=== PATIENT | male | born 1990 | race Caucasian/White ===

== ENCOUNTER 2017-04-12 04:13 | Emergency (ER) | payer OTHER ==
[~2017-04-12 04:13] MED LIST: AMOX500T PO; Z.0.NO CURRENT MEDS
[2017-04-12] MEDS ORDERED: SODIUM CHLOR 0.9% 1000 ML INJ 1,000 ML IV SCH (04:15)
[2017-04-12] MEDS ORDERED: FAMOTIDINE 20 MG/2 ML VIAL IV PUSH ONE (04:15)
[2017-04-12] MEDS ORDERED: ONDANSETRON HCL 4 MG/2 ML VIAL IVP ONE (04:15)
[2017-04-12] MEDS ORDERED: SODIUM CHLORIDE 0.9% FLUSH 10 ML FLUSH IV FLUSH PRN (04:15)
[2017-04-12] MEDS ORDERED: ALUMINUM/MAGNESIUM/SIMETH 30 ML CUP PO ONE (04:15)
[2017-04-12] MEDS ORDERED: LIDOCAINE VISCOUS 2% SOLN 15 ML UDC PO ONE (04:15)
[2017-04-12 04:18] VITALS: BP 138/87; PULSE 85; RESP 16; TEMP 98.1; O2SAT 97
[2017-04-12 04:24] VITALS: O2SAT 95
[2017-04-12 04:39] LABS: AUTOMATED NEUTROPHIL # 9.3 TH/MM3 (1.8-7.7); BASOPHIL # 0.1 TH/MM3 (0-0.2); BASOPHIL % 0.4 % (0.0-2.0); EOSINOPHIL # 0.2 TH/MM3 (0-0.4); EOSINOPHIL % 1.4 % (0.0-4.0); HEMATOCRIT 48.7 % (39.0-51.0); HEMOGLOBIN 17.2 GM/DL (13.0-17.0); LYMPH % 19.1 % (9.0-44.0); LYMPHOCYTE # 2.4 TH/MM3 (1.0-4.8); MEAN CELL VOLUME 86.3 FL (80.0-100.0); MEAN CORPUSCULAR HEMOGLOBIN 30.4 PG (27.0-34.0); MEAN CORPUSCULAR HGB CONC 35.3 % (32.0-36.0); MEAN PLATELET VOLUME 7.6 FL (7.0-11.0); MONO % 6.5 % (0.0-8.0); MONOCYTE # 0.8 TH/MM3 (0-0.9); NEUT % 72.6 % (16.0-70.0); PLATELET COUNT 240 TH/MM3 (150-450); RED BLOOD COUNT 5.64 MIL/MM3 (4.50-5.90); RED CELL DISTRIBUTION WIDTH 13.1 % (11.6-17.2); WHITE BLOOD COUNT 12.8 TH/MM3 (4.0-11.0)
--- NOTE | 2017-04-12 04:53 | RADRPT ---
EXAM DATE/TIME: 04/12/2017 04:29 [place] COMPARISON: No previous studies available for comparison. INDICATIONS : Left upper and mid line abdomen pain. ORAL CONTRAST: No oral contrast ingested. RADIATION DOSE: 8.47 CTDIvol (mGy) MEDICAL HISTORY : None SURGICAL HISTORY : None. ENCOUNTER: Initial ACUITY: 1 day PAIN SCALE: 5/10 LOCATION: Left upper quadrant TECHNIQUE: Volumetric scanning of the abdomen and pelvis was performed. Using automated exposure control and ad justment of the mA and/or kV according to patient size, radiation dose was kept as low as reasonably achievable to obtain optimal diagnostic quality images. DICOM format image data is available electro nically for review and comparison. The lack of IV contrast limits the diagnosis for certain organ pa thology. FINDINGS: LOWER LUNGS: The visualized lower lungs are clear. LIVER: Homogeneous density without lesion. There is no dilation of the biliary tree. No calcified gallston es. SPLEEN: Normal size without lesion. PANCREAS: Within normal limits. KIDNEYS: Normal in size and shape. There is no mass, stone, or hydronephrosis. ADRENAL GLANDS: Within normal limits. VASCULAR: There is no aortic aneurysm. BOWEL/MESENTERY: The stomach, small bowel, and colon demonstrate no acute abnormality. There is no free intraperitone al air or fluid. No inflammatory changes. ABDOMINAL WALL: Within normal limits. RETROPERITONEUM: There is no lymphadenopathy. BLADDER: No wall thickening or mass. REPRODUCTIVE: Within normal limits. INGUINAL: There is no lymphadenopathy or hernia. MUSCULOSKELETAL: Within normal limits for patient age. CONCLUSION: No acute disease. No calcified renal stones or hydronephrosis. Jus Edward MD on April 12, 2017 at 4:48 Board Certified Radiologist. This report was verified electronically.
[2017-04-12 04:59] LABS: ALKALINE PHOSPHATASE 66 U/L (45-117); TOTAL BILIRUBIN ADULT 0.5 MG/DL (0.2-1.0); TOTAL PROTEIN 8.8 GM/DL (6.4-8.2)
[2017-04-12 05:01] LABS: ALBUMIN 4.8 GM/DL (3.4-5.0); ALT (GPT) 36 U/L (12-78); AST (GOT) 23 U/L (15-37); BICARBONATE 28.2 MEQ/L (21.0-32.0); BLOOD UREA NITROGEN 16 MG/DL (7-18); CALCIUM 9.5 MG/DL (8.5-10.1); CHLORIDE 105 MEQ/L (98-107); CREATININE 0.99 MG/DL (0.60-1.30); GLOMERULAR FILTRATION RATE 90 ML/MIN (>89); GLUCOSE,RANDOM 84 MG/DL (74-106); LIPASE 74 U/L (73-393); SODIUM (NA) 140 MEQ/L (136-145)
[2017-04-12] MEDS ORDERED: SUCRALFATE 1 GM TAB PO ONE (06:15)
[2017-04-12] MEDS ORDERED: PROT40TA PO (07:22)
[2017-04-12] MEDS ORDERED: TRAM50 PO (07:22)
[2017-04-12] MEDS ORDERED: CARA1TAB6 PO (07:22)
--- NOTE | 2017-04-12 07:22 | PD ---
HPI . GI complaint Chief Complaint: GI Complaint Time Seen by Provider: 04:15 Travel History International Travel<30 days: No Contact w/Intl Traveler<30days: No Traveled to known affect area: No History of Present Illness HPI 26-year-old male complains of epigastric pain radiating to the back worse with certain foods bending over. Patient had this pain for the past several weeks, getting worse, constant tonight and much more severe. 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 Patient denies any vomiting but has some nausea, denies any melena or hematochezia. Patient denies any stool changes including stearrhea. No change with oral intake fatty foods greasy foods or acidic/sour tasting foods. Denies fever chills sweats denies any idiosyncratic food intake or significant travel history. Patient denies any change in exercise tolerance PFSH Past Medical History Narrative Medical No significant past medical history Medical History: Denies Significant Hx Past Surgical History Surgical History: No Previous Surgery Social History Alcohol Use: Yes (OCC.) Tobacco Use: No Substance Use: No Allergies-Medications (Allergen,Severity, Reaction): Coded Allergies: No Known Allergies (Verified Allergy, Mild, 04/12/17) Reported Meds & Prescriptions Reported Meds & Active Scripts Active No Active Prescriptions or Reported Medications Narrative Medication Allergies medications review Review of Systems General / Constitutional: No: Fever Eyes: No: Visual changes HENT: No: Headaches Cardiovascular: No: Chest Pain or Discomfort Respiratory: No: Shortness of Breath Gastrointestinal: Positive: Nausea, Vomiting, Abdominal Pain Genitourinary: No: Dysuria Musculoskeletal: No: Pain Skin: No Rash Neurologic: No: Weakness Psychiatric: No: Depression Endocrine: No: Polydipsia Hematologic/Lymphatic: No: Easy Bruising Physical Exam Narrative GENERAL: Awake and alert oriented 3 patient is uncomfortable appearing but otherwise no acute distress SKIN: Warm and dry. Color is normal no diaphoresis cyanosis or pallor HEAD: Atraumatic. Normocephalic. EYES: Pupils equal and round. No scleral icterus. No injection or drainage. ENT: No nasal bleeding or discharge. Mucous membranes pink and moist. NECK: Trachea midline. No JVD. CARDIOVASCULAR: Regular rate and rhythm. S1-S2 no murmurs rubs or gallops RESPIRATORY: No accessory muscle use. Clear to auscultation. Breath sounds equal bilaterally. GASTROINTESTINAL: Abdomen soft, tender epigastrium no rebound or guarding no organomegaly appreciated., nondistended. Hepatic and splenic margins not palpable. MUSCULOSKELETAL: Extremities without clubbing, cyanosis, or edema. No obvious deformities. NEUROLOGICAL: Awake and alert. No obvious cranial nerve deficits. Motor grossly within normal limits. Five out of 5 muscle strength in the arms and legs. Normal speech. PSYCHIATRIC: Appropriate mood and affect; insight and judgment normal. Data Data Last Documented VS Vital Signs Date Time Temp Pulse Resp B/P (MAP) Pulse Ox O2 Delivery O2 Flow Rate FiO2 04/12/17 04:24 95 Room Air 04/12/17 04:18 98.1 85 16 138/87 (104) Orders Orders Complete Blood Count With Diff (04/12/17 04:15) Comprehensive Metabolic Panel (04/12/17 04:15) Lipase (04/12/17 04:15) Urinalysis - C+S If Indicated (04/12/17 04:15) Ct Abd/Pel W/O Iv Contrast (04/12/17 04:15) Iv Access Insert/Monitor (04/12/17 04:15) Ecg Monitoring (04/12/17 04:15) Oximetry (04/12/17 04:15) Ondansetron Inj (Zofran Inj) (04/12/17 04:15) Sodium Chlor 0.9% 1000 Ml Inj (Ns 1000 M (04/12/17 04:15) Sodium Chloride 0.9% Flush (Ns Flush) (04/12/17 04:15) Famotidine Inj (Pepcid Inj) (04/12/17 04:15) Al-Mag Hy-Si 40-40-4 Mg/Ml Liq (Mag-Al P (04/12/17 04:15) Lidocaine 2% Viscous (Xylocaine 2% Visco (04/12/17 04:15) Westergren Sedimentation Rate (04/12/17 06:06) Troponin I (04/12/17 06:06) Sucralfate (Carafate) (04/12/17 06:15) Labs Laboratory Tests Test 04/12/17 04:20 04/12/17 06:30 White Blood Count 12.8 TH/MM3 Red Blood Count 5.64 MIL/MM3 Hemoglobin 17.2 GM/DL Hematocrit 48.7 % Mean Corpuscular Volume 86.3 FL Mean Corpuscular Hemoglobin 30.4 PG Mean Corpuscular Hemoglobin Concent 35.3 % Red Cell Distribution Width 13.1 % Platelet Count 240 TH/MM3 Mean Platelet Volume 7.6 FL Neutrophils (%) (Auto) 72.6 % Lymphocytes (%) (Auto) 19.1 % Monocytes (%) (Auto) 6.5 % Eosinophils (%) (Auto) 1.4 % Basophils (%) (Auto) 0.4 % Neutrophils # (Auto) 9.3 TH/MM3 Lymphocytes # (Auto) 2.4 TH/MM3 Monocytes # (Auto) 0.8 TH/MM3 Eosinophils # (Auto) 0.2 TH/MM3 Basophils # (Auto) 0.1 TH/MM3 CBC Comment DIFF FINAL Differential Comment Blood Urea Nitrogen 16 MG/DL Creatinine 0.99 MG/DL Random Glucose 84 MG/DL Total Protein 8.8 GM/DL Albumin 4.8 GM/DL Calcium Level 9.5 MG/DL Alkaline Phosphatase 66 U/L Aspartate Amino Transf (AST/SGOT) 23 U/L Alanine Aminotransferase (ALT/SGPT) 36 U/L Total Bilirubin 0.5 MG/DL Sodium Level 140 MEQ/L Potassium Level 4.1 MEQ/L Chloride Level 105 MEQ/L Carbon Dioxide Level 28.2 MEQ/L Anion Gap 7 MEQ/L Estimat Glomerular Filtration Rate 90 ML/MIN Lipase 74 U/L MDM Medical Decision Making Medical Screen Exam Complete: Yes Emergency Medical Condition: Yes Medical Record Reviewed: Yes Differential Diagnosis Abdominal pain, epigastric pain, gastritis, reflux esophagitis, duodenitis, pancreatitis, choledocholithiasis, biliary colic Narrative Course Patient's laboratory examinations reviewed, no significant abnormalities. Patient had mild improvement with Maalox lidocaine and antacids IV. Patient's tenderness improved markedly. CT abdomen and pelvis no intra-abdominal pathology noted as per radiology. Diagnosis Primary Impression: Epigastric pain Additional Impression: Gastritis Qualified Codes: K29.00 - Acute gastritis without bleeding Patient Instructions: Gastritis (ED), General Instructions Additional Instructions: Protonix 40 mg daily. Carafate 1 g 4 times daily. Recommend follow-up with gastroenterology for evaluation and possible upper endoscopy. Return for worsening Scripts Tramadol (Ultram) 50 Mg Tab 50 MG PO Q8H Y for PAIN, #20 TAB 0 Refills Prov: Prasanth Kee MD 04/12/17 Sucralfate (Carafate) 1 Gram Tab 1 GM PO QID for Ulcer Prevention, #120 TAB 0 Refills On empty stomach Prov: Prasanth Kee MD 04/12/17 Pantoprazole (Protonix) 40 Mg Tab 40 MG PO DAILY for Reflux, #30 TAB 0 Refills Prov: Prasanth Kee MD 04/12/17 Prasanth Kee MD Apr 12, 2017 07:22
== END 2017-04-12 07:37 | disposition home or self-care (01) ==
LOC: NEPE 04:13
DX: K29.00 Acute gastritis without bleeding (principal)
CPT/HCPCS: 74176; 80053; 83690; 84484; 85025; 85652; 96374; 96375; 99284; J2405; J7030